=== PATIENT | female | born 1950 | race Caucasian/White ===

== ENCOUNTER → 2016-07-23 | Outpatient (CLI) | payer OTHER ==
--- NOTE | 2016-07-23 19:14 | DX ---
Thoracic Spine Clinical Indications: Chronic back pain. Findings: There is moderate disk space narrowing of the upper and midthoracic spine from approximate ly the T2-T3 interspace through the T9-T10 interspace with diskogenic sclerosis. There may be some mi ld loss of vertebral body height which is age indeterminate. Atherosclerotic disease of the aorta is noted. Impression: 1. Multilevel degenerative disk disease. 2. Some midthoracic mild loss of height of the vertebral bodies suggests wedge compression fractures. If pain persists, MRI of the thoracic spine may be helpful for further evaluation.
== END ==
LOC: BRMIMAGING 12:59
PROVIDERS: ATTEND Internal Medicine
DX: M51.34 Other intervertebral disc degeneration, thoracic region (principal)
CPT/HCPCS: 72070-PO